=== PATIENT | female | born 1945 | race Caucasian/White ===

== ENCOUNTER 2017-12-13 11:19 | Emergency (ER) | payer MEDICARE, OTHER ==
--- OUTSIDE RECORDS SUMMARY | 2017-12-13 14:45 | XMS REPORT ---
:1945 External Reference #:[id number] Author Organization [facility] [employer] [facility] Address [address] [place] [address] Phone [phone] Care Team Providers Name Role Phone Stacia Redding MD Primary Care Physician Unavailable Payers Type Date Identification Numbers Payment Provider Subscriber Medicare Primary Effective: Policy Number: Medicare Fabien Clement 2013 [id number] PayID: [id number] [address] [place] [address] Commercial Policy Number: [id number] Lifetime Benefit Solution Fabien Clement PayID: [id number] [address] [place] [address] Problems Date Description Provider Status Onset: 05/14/2012 Cough Stacia Redding MD Active Onset: 05/14/2012 Benign essential hypertension Stacia Redding MD Active Onset: 05/14/2012 Gastroesophageal reflux disease Stacia Redding MD Active Onset: 05/14/2012 Depressive disorder Stacia Redding MD Active Onset: 10/22/2012 Acute upper respiratory infection Stacia Redding MD Active Onset: 11/07/2012 Backache Stacia Redding MD Active Family History Date Family Member(s) Problem(s) Comments Father due to Prostate Cancer () Mother due to Diabetes () Mother due to Pulmonary Embolus () Social History Type Date Description Comments ETOH Use Denies alcohol use Smoking Patient has never smoked Allergies, Adverse Reactions, Alerts Date Description Reaction Status Severity Comments 05/14/2012 Tramadol active 05/14/2012 Meloxicam active Medications Medication Date Status Form Strength Qnty SIG Indications Ordering Provider Sertraline HCL 06/10 Active Tablets 50mg 90tab 1 by mouth s every day Ring, Omeprazole 11/11 Active Capsules 20mg 90cap [address] seals every day Ring, Zostavax 09/21 Active Solution [id number]/ 1unit injection as Rec 0.65ML s ordered Ring, Clobetasol 10/22 Active Cream 0.05% 60gm small amount Elyn Propionate to affected Ring, area tid prn Zestril 05/14 Active Tablets 5mg 90tab 1 by mouth s every day Ring, Multivitamins 05/14 Active Tablets 100ta 1 po qd bs Ring, Ibuprofen 05/14 Active Tablets 800mg 60tab 1 po q8 hours s prn with food Ring, Actonel Active Tablets 35mg 12tab 1 by mouth El / s weekly Ring, Calcium 500 +D Active Tablets 500-400mg 2 by mouth Unknown /0000 -Unit twice a day Fiber Active Tablets 625mg 1 by mouth Unknown /0000 three times a day Hair Skin And Active Tablets Unknown Nails Formula /0000 Chaparro-Polycin HC 07/05 Hx Ointment 1% 5ml apply to Right eye Ring, - three times a Azithromycin 04/17 Hx Tablets 250mg 6tabs 2 by mouth J20.9 Sarkis F. /2017 today, 1 by MD Iveth - mouth day 2 07/05 thru Robitussin 04/17 Hx Capsules 10-200mg 20cap 1 by mouth J20.9 Sarkis F. Cough+Chest /2016 s twice a day MD Iveth Congestion DM - as needed 07/05 Amoxicillin 01/18 Hx Tablets 875mg 20tab tab 1 by s mouth twice a Ring, - day 03/29 Flagyl 01/21 Hx Tablets 500mg 30tab 1 po tid s Ring, - 02/05 Clarithromycin 10/22 Hx Tablets 500mg 20tab 1 po bid with s food Ring, - 11/07 Nystatin/Triamci 10/22 Hx Cream [id number]. 60gm apply to Elyn none /2012 1Unit/GM- affected area MD Miladis - % bid prn 09/15 Work Note 10/22 Hx may not return to MD Miladis - work till 11/0710/28/12 no restrictions TENS Unit 10/22 Hx 1unit as directed s dx. Pain MD Miladis - 07/15 Sertraline HCL 06/05 Hx Tablets 25mg 180ta 2 by mouth bs every day MD Miladis - 06/10 Omeprazole 05/14 Hx Capsules 20mg 90cap [address] bozena Redding MD - 02/05 Calcium 500+D 05/14 Hx Tablets 500-400mg as directed Stacia -Unit MD Miladis - 09/15 Claritin 05/14 Hx Tablets 10mg 15tab 1 po q day s prn MD Miladis - 11/07 Metaxalone 00 Hx Tablets 800mg Unknown /0000 - 07/05 Skelaxin 0000 Hx Tablets 800mg 1 by mouth Unknown /0000 twice a day - 06/10 Immunizations CPT Code Status Date Vaccine Reaction Lot # [id number] Given 08/14/2017 Influenza Virus (Afluria) Split Virus 3 Years Of Age And Older Q2035 Given 08/07/2017 Influenza Virus (Afluria) Split Virus 3 Years Of Age And Older Q2035 Given 08/07/2017 Influenza Virus (Afluria) [id number] Split Virus 3 Years Of Age And Older Q2037 Given 07/12/2016 Influenza Vaccine [id number] (Fluvirin) 3 Years Of Age Or Older [id number] Given 09/15/2015 Pneumococcal Conjugate [id number] Vaccine 13 Valent For Intramuscular Use Q2035 Given 07/22/2015 Influenza Virus (Afluria) Split Virus 3 Years Of Age And Older Q2035 Given 07/22/2015 Influenza Virus (Afluria) [id number] Split Virus 3 Years Of Age And Older [id number] Given 07/04/2015 Tetanus,Diphtheria,Adut/Ad ol Pertussis Q2037 Given 08/06/2014 Influenza Vaccine (Fluvirin) 3 Years Of Age Or Older Q2037 Given 08/06/2014 Influenza Vaccine (Fluvirin) 3 Years Of Age Or Older [id number] Given 08/12/2013 Influenza Virus Vaccine Done through [employer] [id number] (History Only) Vital Signs Date Vital Result Comment 12/05/2017 BP Systolic 126 mmHg BP Diastolic 70 mmHg Height 66.50 inches 5'6.50" Weight 205.00 lb BMI (Body Mass Index) 32.6 kg/m2 08/14/2017 BP Systolic 128 mmHg BP Diastolic 70 mmHg Height 66.50 inches 5'6.50" Weight 208.00 lb BMI (Body Mass Index) 33.1 kg/m2 07/05/2017 BP Systolic 122 mmHg BP Diastolic 66 mmHg Height 66.50 inches 5'6.50" Weight 206.00 lb BMI (Body Mass Index) 32.7 kg/m2 04/17/2017 BP Systolic 110 mmHg BP Diastolic 68 mmHg Body Temperature 974.0 F Height 66 inches 5'6" Weight 204.00 lb BMI (Body Mass Index) 32.9 kg/m2 04/04/2017 BP Systolic 132 mmHg BP Diastolic 70 mmHg Height 66 inches 5'6" Weight 212.00 lb BMI (Body Mass Index) 34.2 kg/m2 10/18/2016 BP Systolic 130 mmHg BP Diastolic 70 mmHg Height 66 inches 5'6" Weight 209.00 lb BMI (Body Mass Index) 33.7 kg/m2 07/12/2016 BP Systolic 142 mmHg BP Diastolic 72 mmHg Height 66 inches 5'6" Weight 210.00 lb BMI (Body Mass Index) 33.9 kg/m2 03/29/2016 BP Systolic 132 mmHg BP Diastolic 68 mmHg Height 66 inches 5'6" Weight 206.00 lb BMI (Body Mass Index) 33.2 kg/m2 12/21/2015 BP Systolic 138 mmHg BP Diastolic 70 mmHg Height 66 inches 5'6" Weight 201.00 lb BMI (Body Mass Index) 32.4 kg/m2 09/15/2015 BP Systolic 138 mmHg BP Diastolic 70 mmHg Height 66 inches 5'6" Weight 202.00 lb BMI (Body Mass Index) 32.6 kg/m2 06/10/2015 BP Systolic 120 mmHg BP Diastolic 76 mmHg Height 66 inches 5'6" Weight 203.00 lb BMI (Body Mass Index) 32.8 kg/m2 03/05/2015 BP Systolic 130 mmHg BP Diastolic 80 mmHg Height 66 inches 5'6" Weight 203.00 lb BMI (Body Mass Index) 32.8 kg/m2 11/26/2014 BP Systolic 152 mmHg BP Diastolic 70 mmHg Height 68 inches 5'8" Weight 203.00 lb BMI (Body Mass Index) 30.9 kg/m2 08/18/2014 BP Systolic 126 mmHg BP Diastolic 80 mmHg Height 68 inches 5'8" Weight 206.00 lb BMI (Body Mass Index) 31.3 kg/m2 04/28/2014 BP Systolic 140 mmHg BP Diastolic 80 mmHg Height 67 inches 5'7" Weight 208.00 lb BMI (Body Mass Index) 32.6 kg/m2 02/05/2014 BP Systolic 130 mmHg BP Diastolic 78 mmHg 02/05/2014 Weight 205.00 lb 01/21/2014 BP Systolic 122 mmHg BP Diastolic 80 mmHg 10/31/2013 BP Systolic 130 mmHg BP Diastolic 74 mmHg Height 66 inches 5'6" Weight 211.00 lb BMI (Body Mass Index) 34.1 kg/m2 07/15/2013 BP Systolic 130 mmHg BP Diastolic 70 mmHg Height 66 inches 5'6" Weight 214.00 lb BMI (Body Mass Index) 34.5 kg/m2 04/04/2013 BP Systolic 146 mmHg BP Diastolic 70 mmHg Height 66 inches 5'6" Weight 212.00 lb BMI (Body Mass Index) 34.2 kg/m2 11/07/2012 BP Systolic 110 mmHg BP Diastolic 62 mmHg Height 66 inches 5'6" Weight 209.00 lb BMI (Body Mass Index) 33.7 kg/m2 10/22/2012 BP Systolic 136 mmHg BP Diastolic 74 mmHg Body Temperature 99.6 F 06/05/2012 BP Systolic 142 mmHg BP Diastolic 80 mmHg Height 66 inches 5'6" Weight 214.00 lb BMI (Body Mass Index) 34.5 kg/m2 05/14/2012 BP Systolic 110 mmHg BP Diastolic 60 mmHg Height 66 inches 5'6" Weight 212.00 lb BMI (Body Mass Index) 34.2 kg/m2 Results Test Date Test Result H/L Range Note CBS W/Automated Diff 11/22/2017 White Blood Count 6.4 K/uL 3.1-10.7 1 Red Blood Count 4.32 M/uL 3.90-5.40 1 Hemoglobin 13.0 gm/dL 11.6-15.8 1 Hematocrit 39.1 % 36.0-46.1 1 Mean Cell Volume 90.5 fl 80.9-99.0 1 Mean Corpuscular HGB 30.1 pg 25.9-32.7 1 Mean Corpuscular HGB Conc 33.2 g/dL 30.8-34.3 1 Platelet Count 286 K/uL 155-360 1 Red Cell Distri Width SD 40.9 fl 3-47 1 Red Cell Distri Width %CV 12.7 % 11.7-14.4 1 Mean Platelet Volume 9.8 fL 8.9-12.4 1 Neut% 60.3 % 40.4-72.8 1 Lymph % 30.6 % 20.0-42.0 1 [place] % 7.2 % 4.3-13.2 1 Eo% 1.4 % 0.0-6.6 1 Bas% 0.5 % 0.0-1.1 1 Neut# 3.88 K/uL 1.8-7.0 1 Lymph # 1.97 K/uL 1.0-4.0 1 [place] # 0.46 K/uL 0.3-0.9 1 Eos # 0.09 K/uL 0.0-0.5 1 Baso # 0.03 K/uL 0.0-0.1 1 Comprehensive Metabolic Panel 11/22/2017 Glucose 89 mg/dL 74-106 1 BUN 19 mg/dL High 7-18 1 Creatinine 0.8 mg/dL 0.6-1.3 1 Glom Filtration Rate, Estimate >60 mL/min >60 1 If >60 mL/min >60 1, 2 BUN/Creat 23.7 ratio 1 Sodium 140 mmol/L 136-145 1 Potassium 3.9 mmol/L 3.5-5.1 1 Chloride 107 mmol/L 98-107 1 Carbon Dioxide 26 mmol/L 21-32 1 Anion Gap 7 mEq/L Low 8-16 1 Calcium 9.1 mg/dL 8.5-10.1 1 Total Protein 7.6 g/dL 6.4-8.2 1 Albumin 3.7 g/dL 3.4-5.0 1 Globulin 3.9 g/dL 1.9-4.3 1 Alb/Glob 0.9 ratio 1 Bilirubin,Total 0.4 mg/dL 0.2-1.0 1 Sgot/Ast 20 U/L 15-37 1 SGPT/Alt 27 U/L 12-78 1 Alkaline Phosphatase 122 U/L High 45-117 1 Hemoglobin A1c 08/07/2017 Glycohemoglobin (A1c) 5.5 % 4.2-6.3 3, 4 eAG 111 mg/dL 3 Hepatic Function Panel 08/07/2017 Total Protein 7.5 g/dL 6.4-8.2 3 Albumin 3.5 g/dL 3.4-5.0 3 Globulin 4.0 g/dL 1.9-4.3 3 Alb/Glob 0.9 ratio 3 Bilirubin,Total 0.4 mg/dL 0.2-1.0 3 Bilirubin,Direct 0.1 mg/dL 0.0-0.2 3 Bilirubin,Indirect 0.3 mg/dL 0.0-0.9 3 Sgot/Ast 16 U/L 15-37 3 SGPT/Alt 21 U/L 12-78 3 Alkaline Phosphatase 120 U/L High 45-117 3 General Health Panel 08/07/2017 Thyroid Stim Hormone 3.01 uIU/mL 0.30- 4.20 3 Free T4 0.89 ng/dL 0.76-1.46 3 CMP W/O Egfr 08/07/2017 Glucose 89 mg/dL 74-106 3 BUN 17 mg/dL 7-18 3 Creatinine 0.8 mg/dL 0.6-1.3 3 Glom Filtration Rate, Estimate >60 mL/min >60 3 If >60 mL/min >60 3, 5 BUN/Creat 21.2 ratio 3 Sodium 141 mmol/L 136-145 3 Potassium 4.0 mmol/L 3.5-5.1 3 Chloride 108 mmol/L High 98-107 3 Carbon Dioxide 29 mmol/L 21-32 3 Anion Gap 4 mEq/L Low 8-16 3 Calcium 8.7 mg/dL 8.5-10.1 3 Laboratory test finding 08/07/2017 Cholesterol 139 mg/dL <200 3, 6 CBC W/ Diff & PLT 08/07/2017 White Blood Count 5.6 K/uL 3.1-10.7 3 Red Blood Count 4.19 M/uL 3.90-5.40 3 Hemoglobin 12.8 gm/dL 11.6-15.8 3 Hematocrit 38.4 % 36.0-46.1 3 Mean Cell Volume 91.6 fl 80.9-99.0 3 Mean Corpuscular HGB 30.5 pg 25.9-32.7 3 Mean Corpuscular HGB Conc 33.3 g/dL 30.8-34.3 3 Platelet Count 264 K/uL 150-400 3 Red Cell Distri Width SD 42.4 fl 3-47 3 Red Cell Distri Width %CV 12.9 % 11.7-14.4 3 Mean Platelet Volume 9.1 fL 8.9-12.4 3 Neut% 56.1 % 40.4-72.8 3 Lymph % 34.2 % 20.0-42.0 3 [place] % 7.0 % 4.3-13.2 3 Eo% 2.3 % 0.0-6.6 3 Bas% 0.4 % 0.0-1.1 3 Neut# 3.13 K/uL 1.8-7.0 3 Lymph # 1.91 K/uL 1.0-4.0 3 [place] # 0.39 K/uL 0.3-0.9 3 Eos # 0.13 K/uL 0.0-0.5 3 Baso # 0.02 K/uL 0.0-0.1 3 CBC W/ Diff & PLT 06/27/2017 White Blood Count 5.8 K/uL 3.1-10.7 7 Red Blood Count 4.29 M/uL 3.90-5.40 7 Hemoglobin 13.0 gm/dL 11.6-15.8 7 Hematocrit 39.1 % 36.0-46.1 7 Mean Cell Volume 91.1 fl 80.9-99.0 7 Mean Corpuscular HGB 30.3 pg 25.9-32.7 7 Mean Corpuscular HGB Conc 33.2 g/dL 30.8-34.3 7 Platelet Count 269 K/uL 150-400 7 Red Cell Distri Width SD 41.1 fl 3-47 7 Red Cell Distri Width %CV 12.7 % 11.7-14.4 7 Mean Platelet Volume 9.4 fL 8.9-12.4 7 Neut% 53.7 % 40.4-72.8 7 Lymph % 37.5 % 20.0-42.0 7 [place] % 6.8 % 4.3-13.2 7 Eo% 1.5 % 0.0-6.6 7 Bas% 0.5 % 0.0-1.1 7 Neut# 3.13 K/uL 1.8-7.0 7 Lymph # 2.19 K/uL 1.0-4.0 7 [place] # 0.40 K/uL 0.3-0.9 7 Eos # 0.09 K/uL 0.0-0.5 7 Baso # 0.03 K/uL 0.0-0.1 7 Basic Metabolic Panel 06/27/2017 Glucose 93 mg/dL 74-106 7 BUN 19 mg/dL High 7-18 7 Creatinine 0.8 mg/dL 0.6-1.3 7 Glom Filtration Rate, Estimate >60 mL/min >60 7 If >60 mL/min >60 7, 8 BUN/Creat 23.7 ratio 7 Sodium 143 mmol/L 136-145 7 Potassium 3.9 mmol/L 3.5-5.1 7 Chloride 110 mmol/L High 98-107 7 Carbon Dioxide 28 mmol/L 21-32 7 Anion Gap 5 mEq/L Low 8-16 7 Calcium 8.9 mg/dL 8.5-10.1 7 CBC W/ Diff & PLT 01/09/2017 White Blood Count 5.5 K/uL 3.1-10.7 9 Red Blood Count 4.44 M/uL 3.90-5.40 9 Hemoglobin 13.5 gm/dL 11.6-15.8 9 Hematocrit 40.4 % 36.0-46.1 9 Mean Cell Volume 91.0 fl 80.9-99.0 9 Mean Corpuscular HGB 30.4 pg 25.9-32.7 9 Mean Corpuscular HGB Conc 33.4 g/dL 30.8-34.3 9 Platelet Count 293 K/uL 150-400 9 Red Cell Distri Width SD 41.6 fl 3-47 9 Red Cell Distri Width %CV 12.7 % 11.7-14.4 9 Mean Platelet Volume 9.2 fL 8.9-12.4 9 Neut% 51.4 % 40.4-72.8 9 Lymph % 38.3 % 20.0-42.0 9 [place] % 7.1 % 4.3-13.2 9 Eo% 2.7 % 0.0-6.6 9 Bas% 0.5 % 0.0-1.1 9 Neut# 2.80 K/uL 1.8-7.0 9 Lymph # 2.09 K/uL 1.0-4.0 9 [place] # 0.39 K/uL 0.3-0.9 9 Eos # 0.15 K/uL 0.0-0.5 9 Baso # 0.03 K/uL 0.0-0.1 9 Basic Metabolic Panel 01/09/2017 Glucose 96 mg/dL 74-106 9 BUN 14 mg/dL 7-18 9 Creatinine 0.8 mg/dL 0.6-1.3 9 Glom Filtration Rate, Estimate >60 mL/min >60 9 If >60 mL/min >60 9, 10 BUN/Creat 17.5 ratio 9 Sodium 143 mmol/L 136-145 9 Potassium 4.0 mmol/L 3.5-5.1 9 Chloride 106 mmol/L 98-107 9 Carbon Dioxide 29 mmol/L 21-32 9 Anion Gap 8 mEq/L 8-16 9 Calcium 8.9 mg/dL 8.5-10.1 9 General Health Panel 10/10/2016 Thyroid Stim Hormone 2.34 uIU/mL 0.30- 4.20 11 Free T4 0.94 ng/dL 0.76-1.46 11 Laboratory test finding 10/10/2016 Bilirubin,Direct 0.1 mg/dL 0.0-0.2 11 CMP W/O Egfr 10/10/2016 Glucose 92 mg/dL 74-106 11 BUN 20 mg/dL High 7-18 11 Creatinine 0.8 mg/dL 0.6-1.3 11 Glom Filtration Rate, Estimate >60 mL/min >60 11 If >60 mL/min >60 11, 12 BUN/Creat 25.0 ratio 11 Sodium 142 mmol/L 136-145 11 Potassium 3.9 mmol/L 3.5-5.1 11 Chloride 110 mmol/L High 98-107 11 Carbon Dioxide 25 mmol/L 21-32 11 Anion Gap 7 mEq/L Low 8-16 11 Calcium 8.7 mg/dL 8.5-10.1 11 Total Protein 7.6 g/dL 6.4-8.2 11 Albumin 3.6 g/dL 3.4-5.0 11 Globulin 4.0 g/dL 1.9-4.3 11 Alb/Glob 0.9 ratio 11 Bilirubin,Total 0.3 mg/dL 0.2-1.0 11 Sgot/Ast 22 U/L 15-37 11 SGPT/Alt 24 U/L 12-78 11 Alkaline Phosphatase 122 U/L High 45-117 11 CBC W/ Diff & PLT 10/10/2016 White Blood Count 6.5 K/uL 3.1-10.7 11 Red Blood Count 4.35 M/uL 3.90-5.40 11 Hemoglobin 13.1 gm/dL 11.6-15.8 11 Hematocrit 39.2 % 36.0-46.1 11 Mean Cell Volume 90.1 fl 80.9-99.0 11 Mean Corpuscular HGB 30.1 pg 25.9-32.7 11 Mean Corpuscular HGB Conc 33.4 g/dL 30.8-34.3 11 Platelet Count 265 K/uL 155-360 11 Red Cell Distri Width SD 41.0 fl 3-47 11 Red Cell Distri Width %CV 12.8 % 11.7-14.4 11 Mean Platelet Volume 9.0 fL 8.9-12.4 11 Neut% 55.3 % 40.4-72.8 11 Lymph % 35.7 % 17.0-46.1 11 [place] % 6.7 % 4.3-13.2 11 Eo% 1.7 % 0.0-6.6 11 Bas% 0.6 % 0.0-1.1 11 Neut# 3.57 K/uL 1.8-7.0 11 Lymph # 2.30 K/uL 1.8-7.0 11 [place] # 0.43 K/uL 0.3-0.9 11 Eos # 0.11 K/uL 0.0-0.5 11 Baso # 0.04 K/uL 0.0-0.1 11 Lipid Panel 10/10/2016 Cholesterol 143 mg/dL <200 11, 13 Triglycerides 114 mg/dL <150 11, 14 HDL Cholesterol 56 mg/dL >40 11, 15 LDL-Cholesterol 64 mg/dL < 100 11, 16 Basic Metabolic Panel 06/26/2016 Glucose 97 mg/dL 74-106 BUN 14 mg/dL 7-18 Creatinine 0.9 mg/dL 0.6-1.3 Glom Filtration Rate, Estimate >60 mL/min >60 If >60 mL/min >60 17 BUN/Creat 15.5 ratio Sodium 141 mmol/L 136-145 Potassium 3.9 mmol/L 3.5-5.1 Chloride 107 mmol/L 98-107 Carbon Dioxide 27 mmol/L 21-32 Anion Gap 7 mEq/L Low 8-16 Calcium 9.0 mg/dL 8.5-10.1 Basic Metabolic Panel 03/21/2016 Glucose 90 mg/dL 74-106 BUN 16 mg/dL 7-18 Creatinine 0.8 mg/dL 0.6-1.3 Glom Filtration Rate, Estimate >60 mL/min >60 If >60 mL/min >60 18 BUN/Creat 20.0 ratio Sodium 139 mmol/L 136-145 Potassium 3.7 mmol/L 3.5-5.1 Chloride 105 mmol/L 98-107 Carbon Dioxide 28 mmol/L 21-32 Anion Gap 6 mEq/L Low 8-16 Calcium 8.9 mg/dL 8.5-10.1 Basic Metabolic Panel 12/14/2015 Glucose 103 mg/dL 74-106 BUN 18 mg/dL 7-18 Creatinine 0.8 mg/dL 0.6-1.3 Glom Filtration Rate, Estimate >60 mL/min >60 If >60 mL/min >60 19 BUN/Creat 22.5 ratio Sodium 141 mmol/L 136-145 Potassium 4.1 mmol/L 3.5-5.1 Chloride 107 mmol/L 98-107 Carbon Dioxide 28 mmol/L 21-32 Anion Gap 6 mEq/L Low 8-16 Calcium 8.9 mg/dL 8.5-10.1 General Health Panel 09/08/2015 Thyroid Stim Hormone 2.69 uIU/mL 0.36- 3.74 Comprehensive Metabolic 09/08/2015 Glucose 95 mg/dL 74-106 Panel BUN 15 mg/dL 7-18 Creatinine 0.8 mg/dL 0.6-1.3 Glom Filtration Rate, Estimate >60 mL/min >60 If >60 mL/min >60 20 BUN/Creat 18.7 ratio Sodium 140 mmol/L 136-145 Potassium 3.9 mmol/L 3.5-5.1 Chloride 107 mmol/L 98-107 Carbon Dioxide 28 mmol/L 21-32 Anion Gap 5 mEq/L Low 8-16 Calcium 9.0 mg/dL 8.5-10.1 Total Protein 7.9 g/dL 6.4-8.2 Albumin 3.8 g/dL 3.4-5.0 Globulin 4.1 g/dL 1.9-4.3 Alb/Glob 0.9 ratio Bilirubin,Total 0.5 mg/dL 0.2-1.0 Sgot/Ast 20 U/L 15-37 SGPT/Alt 26 U/L 12-78 Alkaline Phosphatase 143 U/L High 45-117 Laboratory test finding 09/08/2015 Thyroxine (T4) 10.0 g/dL 4.7-13.5 LDL Cholesterol Profile 09/08/2015 Cholesterol 151 mg/dL <200 21 Triglycerides 77 mg/dL <150 22 HDL Cholesterol 57 mg/dL >40 23 LDL-Cholesterol 79 mg/dL < 100 24 Liver Function Tests 09/08/2015 Total Protein 7.9 g/dL 6.4-8.2 Albumin 3.8 g/dL 3.4-5.0 Globulin 4.1 g/dL 1.9-4.3 Alb/Glob 0.9 ratio Bilirubin,Total 0.5 mg/dL 0.2-1.0 Bilirubin,Direct < 0.1 mg/dL 0.0-0.2 Bilirubin,Indirect 0.4 mg/dL 0.0-0.9 Sgot/Ast 20 U/L 15-37 SGPT/Alt 26 U/L 12-78 Alkaline Phosphatase 143 U/L High 45-117 CBS W/Automated Diff 09/08/2015 White Blood Count 5.0 K/uL 3.1-10.7 Red Blood Count 4.25 M/uL 3.90-5.40 Hemoglobin 13.1 gm/dL 11.6-15.8 Hematocrit 39.1 % 36.0-46.1 Mean Cell Volume 92.0 fl 80.9-99.0 Mean Corpuscular HGB 30.8 pg 25.9-32.7 Mean Corpuscular HGB Conc 33.5 g/dL 30.8-34.3 Platelet Count 293 K/uL 155-360 Red Cell Distri Width SD 41.4 fl 3-47 Red Cell Distri Width %CV 12.7 % 11.7-14.4 Mean Platelet Volume 9.6 fL 8.9-12.4 Neut% 61.5 % 40.4-72.8 Lymph % 29.2 % 17.0-46.1 [place] % 7.3 % 4.3-13.2 Eo% 1.6 % 0.0-6.6 Bas% 0.4 % 0.0-1.1 Neut# 3.10 K/uL 1.0-7.0 Lymph # 1.47 K/uL Low 1.8-7.0 [place] # 0.37 K/uL 0.3-0.9 Eos # 0.08 K/uL 0.0-0.5 Baso # 0.02 K/uL 0.0-0.1 Basic Metabolic Panel 06/01/2015 Glucose 94 mg/dL 74-106 BUN 14 mg/dL 7-18 Creatinine 0.8 mg/dL 0.6-1.3 Glom Filtration Rate, Estimate >60 mL/min >60 If >60 mL/min >60 25 BUN/Creat 17.5 ratio Sodium 140 mmol/L 136-145 Potassium 3.8 mmol/L 3.5-5.1 Chloride 108 mmol/L High 98-107 Carbon Dioxide 28 mmol/L 21-32 Anion Gap 4 mEq/L Low 8-16 Calcium 8.9 mg/dL 8.5-10.1 Basic Metabolic Panel 05/14/2015 Glucose 136 mg/dL High 74-106 BUN 19 mg/dL High 7-18 Creatinine 0.9 mg/dL 0.6-1.3 Glom Filtration Rate, Estimate >60 mL/min >60 If >60 mL/min >60 26 BUN/Creat 21.1 ratio Sodium 140 mmol/L 136-145 Potassium 3.6 mmol/L 3.5-5.1 Chloride 108 mmol/L High 98-107 Carbon Dioxide 27 mmol/L 21-32 Anion Gap 5 mEq/L Low 8-16 Calcium 8.9 mg/dL 8.5-10.1 CBC W/Automated Diff 05/14/2015 White Blood Count 7.2 K/uL 3.1-10.7 Red Blood Count 4.21 M/uL 3.90-5.40 Hemoglobin 12.7 gm/dL 11.6-15.8 Hematocrit 38.1 % 36.0-46.1 Mean Cell Volume 90.5 fl 80.9-99.0 Mean Corpuscular HGB 30.2 pg 25.9-32.7 Mean Corpuscular HGB Conc 33.3 g/dL 30.8-34.3 Platelet Count 235 K/uL 155-360 Red Cell Distri Width SD 40.0 fl 3-47 Red Cell Distri Width %CV 12.5 % 11.7-14.4 Mean Platelet Volume 9.2 fL 8.9-12.4 Neut% 64.2 % 40.4-72.8 Lymph % 27.3 % 17.0-46.1 [place] % 6.4 % 4.3-13.2 Eo% 1.8 % 0.0-6.6 Bas% 0.3 % 0.0-1.1 Neut# 4.63 K/uL 1.0-7.0 Lymph # 1.97 K/uL 1.8-7.0 [place] # 0.46 K/uL 0.3-0.9 Eos # 0.13 K/uL 0.0-0.5 Baso # 0.02 K/uL 0.0-0.1 Basic Metabolic Panel 02/26/2015 Glucose 97 mg/dL 74-106 BUN 12 mg/dL 7-18 Creatinine 0.8 mg/dL 0.6-1.3 Glom Filtration Rate, Estimate >60 mL/min >60 If >60 mL/min >60 27 BUN/Creat 15.0 ratio Sodium 141 mmol/L 136-145 Potassium 4.0 mmol/L 3.5-5.1 Chloride 108 mmol/L High 98-107 Carbon Dioxide 25 mmol/L 21-32 Anion Gap 8 mEq/L 8-16 Calcium 9.4 mg/dL 8.5-10.1 CBC W/ Diff & PLT 11/19/2014 White Blood Count 7.2 K/uL 3.1-10.7 Red Blood Count 4.39 M/uL 3.90-5.40 Hemoglobin 13.3 gm/dL 11.6-15.8 Hematocrit 40.2 % 36.0-46.1 Mean Cell Volume 91.6 fl 80.9-99.0 Mean Corpuscular HGB 30.3 pg 25.9-32.7 Mean Corpuscular HGB Conc 33.1 g/dL 30.8-34.3 Platelet Count 309 K/uL 155-360 Red Cell Distri Width SD 42.9 fl 3-47 Red Cell Distri Width %CV 13.0 % 11.7-14.4 Mean Platelet Volume 9.6 fL 8.9-12.4 Neut% 57.5 % 40.4-72.8 Lymph % 32.9 % 17.0-46.1 [place] % 6.9 % 4.3-13.2 Eo% 2.1 % 0.0-6.6 Bas% 0.6 % 0.0-1.1 Neut# 4.14 K/uL 1.0-7.0 Lymph # 2.37 K/uL 0.8-3.4 [place] # 0.50 K/uL 0.3-0.9 Eos # 0.15 K/uL 0.0-0.5 Baso # 0.04 K/uL 0.0-0.1 Basic Metabolic Panel 11/19/2014 Glucose 92 mg/dL 74-106 BUN 20 mg/dL High 7-18 Creatinine 0.9 mg/dL 0.6-1.3 Glom Filtration Rate, Estimate >60 mL/min >60 If >60 mL/min >60 28 BUN/Creat 22.2 ratio Sodium 141 mmol/L 136-145 Potassium 3.7 mmol/L 3.5-5.1 Chloride 108 mmol/L High 98-107 Carbon Dioxide 26 mmol/L 21-32 Anion Gap 11 mEq/L 8-16 Calcium 9.5 mg/dL 8.5-10.1 Clotest 11/02/2014 Clotest (SEE NOTE) 29 Surgical Pathology 11/02/2014 S RUN DATE: 11/03/ <SEE 30 NOTE> Comprehensive Metabolic Panel 08/06/2014 Glucose 95 mg/dL 74-106 BUN 21 mg/dL High 7-18 Creatinine 0.9 mg/dL 0.6-1.3 Glom Filtration Rate, Estimate >60 mL/min >60 If >60 mL/min >60 31 BUN/Creat 23.3 ratio Sodium 139 mmol/L 136-145 Potassium 4.0 mmol/L 3.5-5.1 Chloride 107 mmol/L 98-107 Carbon Dioxide 27 mmol/L 21-32 Anion Gap 9 mEq/L 8-16 Calcium 9.3 mg/dL 8.5-10.1 Total Protein 8.1 g/dL 6.4-8.2 Albumin 3.8 g/dL 3.4-5.0 Globulin 4.3 g/dL 1.9-4.3 Alb/Glob 0.9 ratio Bilirubin,Total 0.4 mg/dL 0.2-1.0 Sgot/Ast 22 U/L 15-37 SGPT/Alt 26 U/L 12-78 Alkaline Phosphatase 121 U/L High 45-117 LDL Cholesterol Profile 08/06/2014 Cholesterol 140 mg/dL 32 Triglycerides 94 mg/dL 33 HDL Cholesterol 55 mg/dL 34 LDL-Cholesterol 66 mg/dL 35 Laboratory test finding 08/06/2014 Thyroid Stim Hormone 3.81 uIU/mL High 0.36-3.74 Free T4 1.05 ng/dL 0.76-1.46 Liver Function Tests 08/06/2014 Total Protein 8.1 g/dL 6.4-8.2 Albumin 3.8 g/dL 3.4-5.0 Globulin 4.3 g/dL 1.9-4.3 Alb/Glob 0.9 ratio Bilirubin,Total 0.4 mg/dL 0.2-1.0 Bilirubin,Direct < 0.1 mg/dL 0.0-0.2 Bilirubin,Indirect 0.3 mg/dL 0.0-0.9 Sgot/Ast 22 U/L 15-37 SGPT/Alt 26 U/L 12-78 Alkaline Phosphatase 121 U/L High 45-117 Laboratory test finding 08/06/2014 CK 79 U/L 26-192 CBC W/ Diff & PLT 08/06/2014 White Blood Count 6.5 K/uL 3.1-10.7 Red Blood Count 4.53 M/uL 3.90-5.40 Hemoglobin 13.8 gm/dL 11.6-15.8 Hematocrit 41.4 % 36.0-46.1 Mean Cell Volume 91.4 fl 80.9-99.0 Mean Corpuscular HGB 30.5 pg 25.9-32.7 Mean Corpuscular HGB Conc 33.3 g/dL 30.8-34.3 Platelet Count 338 K/uL 155-360 Red Cell Distri Width SD 41.0 fl 3-47 Red Cell Distri Width %CV 12.6 % 11.7-14.4 Mean Platelet Volume 9.5 fL 8.9-12.4 Neut% 60.5 % 40.4-72.8 Lymph % 30.0 % 17.0-46.1 [place] % 6.9 % 4.3-13.2 Eo% 2.0 % 0.0-6.6 Bas% 0.6 % 0.0-1.1 Neut# 3.93 K/uL 1.0-7.0 Lymph # 1.95 K/uL 0.8-3.4 [place] # 0.45 K/uL 0.3-0.9 Eos # 0.13 K/uL 0.0-0.5 Baso # 0.04 K/uL 0.0-0.1 Laboratory test finding 08/06/2014 Vitamin D,25-Hydroxy 31.7 ng/mL 30.0- 100.0 36 Basic Metabolic Panel 04/21/2014 Glucose 93 mg/dL 76-115 BUN 15 mg/dL 5-23 Creatinine 0.7 mg/dL 0.5-1.4 Glom Filtration Rate, Estimate >60 mL/min >60 If >60 mL/min >60 37 BUN/Creat 21.4 ratio Sodium 140 mmol/L 136-145 Potassium 4.0 mmol/L 3.5-5.1 Chloride 109 mmol/L High 98-107 Carbon Dioxide 26 mEq/L 18-29 Anion Gap 9 mEq/L 8-16 Calcium 9.3 mg/dL 8.5-10.1 Ova + Parasite Comprehensive 01/22/2014 Parasite Concentrate Exam See Note 38 Permanent Trichrome Stain See Note 39 Giardia by Dfa See Note 40 Cryptosporidium by Dfa See Note 41 Laboratory test finding 01/22/2014 C. Difficile Toxin A/B See Note 42 Basic Metabolic Panel 01/21/2014 Glucose 101 mg/dL 76-115 BUN 16 mg/dL 5-23 Creatinine 0.9 mg/dL 0.5-1.4 Glom Filtration Rate, Estimate >60 mL/min >60 If >60 mL/min >60 43 BUN/Creat 17.7 ratio Sodium 141 mmol/L 136-145 Potassium 3.9 mmol/L 3.5-5.1 Chloride 108 mmol/L High 98-107 Carbon Dioxide 27 mEq/L 18-29 Anion Gap 10 mEq/L 8-16 Calcium 9.2 mg/dL 8.5-10.1 CBS W/Automated Diff 01/21/2014 White Blood Count 11.0 K/uL High 3.1-10.7 Red Blood Count 4.27 M/uL 3.90-5.40 Hemoglobin 13.0 gm/dL 11.6-15.8 Hematocrit 38.9 % 36.0-46.1 Mean Cell Volume 91.1 fl 80.9-99.0 Mean Corpuscular HGB 30.4 pg 25.9-32.7 Mean Corpuscular HGB Conc 33.4 g/dL 30.8-34.3 Platelet Count 295 K/uL 155-360 Red Cell Distri Width SD 40.7 fl 3-47 Red Cell Distri Width %CV 12.6 % 11.7-14.4 Mean Platelet Volume 9.4 fL 8.9-12.4 Neut% 70.8 % 40.4-72.8 Lymph % 21.5 % 17.0-46.1 [place] % 6.9 % 4.3-13.2 Eo% 0.6 % 0.0-6.6 Bas% 0.2 % 0.0-1.1 Neut# 7.76 K/uL High 1.0-7.0 Lymph # 2.36 K/uL 0.8-3.4 [place] # 0.76 K/uL 0.3-0.9 Eos # 0.07 K/uL 0.0-0.5 Baso # 0.02 K/uL 0.0-0.1 Laboratory test finding 01/21/2014 Lipase 108 U/L 28-380 Basic Metabolic Panel 10/25/2013 Glucose 98 mg/dL 76-115 BUN 18 mg/dL 5-23 Creatinine 0.6 mg/dL 0.5-1.4 Glom Filtration Rate, Estimate >60 mL/min >60 If >60 mL/min >60 44 BUN/Creat 30.0 ratio Sodium 139 mmol/L 136-145 Potassium 3.7 mmol/L 3.5-5.1 Chloride 106 mmol/L 98-107 Carbon Dioxide 27 mEq/L 18-29 Anion Gap 10 mEq/L 8-16 Calcium 9.3 mg/dL 8.5-10.1 Hemoglobin A1c 10/25/2013 Glycohemoglobin (A1c) 5.5 % 4.8-6.0 45 eAG 111 mg/dL TSH+Free T4 ([place] & 06/30/2013 Thyroid Stim Hormone 3.30 uIU/mL 0.49-4.[address] [facility]) Free T4 0.98 ng/dL 0.71-1.85 LDL Cholesterol Profile 06/30/2013 Cholesterol 138 mg/dL 120-200 Triglycerides 77 mg/dL 16-231 HDL Cholesterol 54 mg/dL 29-83 LDL-Cholesterol 69 mg/dL 62-185 CBS W/Automated Diff 06/30/2013 White Blood Count 5.4 K/uL 3.1-10.7 Red Blood Count 4.09 M/uL 3.90-5.40 Hemoglobin 12.4 gm/dL 11.6-15.8 Hematocrit 36.2 % 36.0-46.1 Mean Cell Volume 88.5 fl 80.9-99.0 Mean Corpuscular HGB 30.3 pg 25.9-32.7 Mean Corpuscular HGB Conc 34.3 g/dL 30.8-34.3 Platelet Count 267 K/uL 155-360 Red Cell Distri Width SD 40.2 fl 3-47 Red Cell Distri Width %CV 12.8 % 11.7-14.4 Mean Platelet Volume 9.3 fL 8.9-12.4 Neut% 54.7 % 40.4-72.8 Lymph % 33.1 % 17.0-46.1 [place] % 8.5 % 4.3-13.2 Eo% 3.1 % 0.0-6.6 Bas% 0.6 % 0.0-1.1 Neut# 2.98 K/uL 1.0-7.0 Lymph # 1.80 K/uL 0.8-3.4 [place] # 0.46 K/uL 0.3-0.9 Eos # 0.17 K/uL 0.0-0.5 Baso # 0.03 K/uL 0.0-0.1 Liver Function Tests 06/30/2013 Total Protein 7.6 g/dL 6.3-8.0 Albumin 3.7 g/dL 3.5-5.0 Globulin 3.9 g/dL 1.9-4.3 Alb/Glob 0.9 ratio Bilirubin,Total 0.5 mg/dL 0.2-1.2 Bilirubin,Direct 0.1 mg/dL 0.1-0.4 Bilirubin,Indirect 0.4 mg/dL 0.0-0.9 Sgot/Ast 21 U/L 16-40 SGPT/Alt 28 U/L Low 30-65 Alkaline Phosphatase 148 U/L High 50-136 Laboratory test finding 06/30/2013 CK 128 U/L 26-190 Vitamin D,25-Hydroxy 19.6 ng/mL Low 30.0-100.0 46 Comprehensive Metabolic Panel 06/30/2013 Glucose 88 mg/dL 76-115 BUN 14 mg/dL 5-23 Creatinine 0.8 mg/dL 0.5-1.4 Glom Filtration Rate, Estimate >60 mL/min >60 If >60 mL/min >60 47 BUN/Creat 17.5 ratio Sodium 143 mmol/L 136-145 Potassium 3.6 mmol/L 3.5-5.1 Chloride 109 mmol/L High 98-107 Carbon Dioxide 27 mEq/L 18-29 Anion Gap 11 mEq/L 8-16 Calcium 8.9 mg/dL 8.5-10.1 Total Protein 7.6 g/dL 6.3-8.0 Albumin 3.7 g/dL 3.5-5.0 Globulin 3.9 g/dL 1.9-4.3 Alb/Glob 0.9 ratio Bilirubin,Total 0.5 mg/dL 0.2-1.2 Sgot/Ast 21 U/L 16-40 SGPT/Alt 28 U/L Low 30-65 Alkaline Phosphatase 148 U/L High 50-136 Basic Metabolic Panel 03/18/2013 Glucose 92 mg/dL 76-115 BUN 16 mg/dL 5-23 Creatinine 0.9 mg/dL 0.5-1.4 Glom Filtration Rate, Estimate >60 mL/min >60 If >60 mL/min >60 48 BUN/Creat 17.7 ratio Sodium 143 mmol/L 136-145 Potassium 4.5 mmol/L 3.5-5.1 Chloride 107 mmol/L 98-107 Carbon Dioxide 28 mEq/L 18-29 Anion Gap 13 mEq/L 8-16 Calcium 9.0 mg/dL 8.5-10.1 Basic Metabolic Panel 10/31/2012 Glucose 95 mg/dL 76-115 BUN 14 mg/dL 5-23 Creatinine 0.7 mg/dL 0.5-1.4 Glom Filtration Rate, Estimate >60 mL/min >60 If >60 mL/min >60 49 BUN/Creat 20.0 ratio Sodium 142 mmol/L 136-145 Potassium 3.7 mmol/L 3.5-5.1 Chloride 108 mmol/L High 98-107 Carbon Dioxide 26 mEq/L 18-29 Anion Gap 12 mEq/L 8-16 Calcium 8.9 mg/dL 8.5-10.1 Glycohemoglobin A1c 10/31/2012 Glycohemoglobin (A1c) 6.0 % 4.8-6.0 50 eAG 126 mg/dL Comprehensive Metabolic Panel 05/14/2012 Glucose 92 mg/dL 76-115 BUN 16 mg/dL 5-23 Creatinine 0.9 mg/dL 0.5-1.4 Glom Filtration Rate, Estimate >60 mL/min >60 If >60 mL/min >60 51 BUN/Creat 17.7 ratio Sodium 141 mmol/L 136-145 Potassium 4.0 mmol/L 3.5-5.1 Chloride 107 mmol/L 98-107 Carbon Dioxide 27 mEq/L 18-29 Anion Gap 11 mEq/L 8-16 Calcium 9.4 mg/dL 8.5-10.1 Total Protein 8.0 g/dL 6.3-8.0 Albumin 3.7 g/dL 3.5-5.0 Globulin 4.3 g/dL 1.9-4.3 Alb/Glob 0.9 ratio Bilirubin,Total 0.3 mg/dL 0.2-1.2 Sgot/Ast 21 U/L 16-40 SGPT/Alt 28 U/L Low 30-65 Alkaline Phosphatase 98 U/L 50-136 LDL Cholesterol Profile 05/14/2012 Cholesterol 135 mg/dL 120-200 Triglycerides 111 mg/dL 16-231 HDL Cholesterol 50 mg/dL 29-83 LDL-Cholesterol 63 mg/dL 62-185 Laboratory test finding 05/14/2012 Thyroid Stim Hormone 2.93 uIU/mL 0.49- 4.67 CBS W/Automated Diff 05/14/2012 White Blood Count 8.8 K/uL 3.1-10.7 Red Blood Count 4.04 M/uL 3.90-5.40 Hemoglobin 12.2 gm/dL 11.6-15.8 Hematocrit 36.8 % 36.0-46.1 Mean Cell Volume 91.1 fl 80.9-99.0 Mean Corpuscular HGB 30.2 pg 25.9-32.7 Mean Corpuscular HGB Conc 33.2 g/dL 30.8-34.3 Platelet Count 316 K/uL 155-360 Red Cell Distri Width SD 41.4 fl 3-47 Red Cell Distri Width %CV 12.8 % 11.7-14.4 Mean Platelet Volume 9.3 fL 8.9-12.4 Neut% 57.1 % 40.4-72.8 Lymph % 32.0 % 17.0-46.1 [place] % 8.8 % 4.3-13.2 Eo% 1.6 % 0.0-6.6 Bas% 0.5 % 0.0-1.1 Neut# 5.00 K/uL 1.0-7.0 Lymph # 2.80 K/uL 0.8-3.4 [place] # 0.77 K/uL 0.3-0.9 Eos # 0.14 K/uL 0.0-0.5 Baso # 0.04 K/uL 0.0-0.1 1 I11.9, E78.2, Z00.0 2 Note: Persistent reduction for 3 months or more in an eGFR <60 mL/min/1.73 m2 defines CKD. Patients with eGFR values >/=60 mL/min/1.73 m2 may also have CKD if evidence of persistent proteinuria is present. The original MDRD equation for estimated GFR is not valid for patients less than 18 years of age. Additional information may be found at [email or web address]. 3 E66.9,E78.2,R73.01,I11.9,E03.9 4 Elevated levels of HbA1c suggest the need for more aggressive treatment of glycemia. The [place] [employer] recommends that a primary goal of therapy should be a HbA1c of <7% and that physicians should re-evaluate the treatment regimen in patients with HbA1c values consistently >8%. 5 Note: Persistent reduction for 3 months or more in an eGFR <60 mL/min/1.73 m2 defines CKD. Patients with eGFR values >/=60 mL/min/1.73 m2 may also have CKD if evidence of persistent proteinuria is present. The original MDRD equation for estimated GFR is not valid for patients less than 18 years of age. Additional information may be found at www.[email or web address]. 6 Reference Guidelines*: Desirable: ........... < 200 mg/dL Borderline High: ..... 200-239 mg/dL High: ................ >=240 mg/dL * The National Cholesterol Education Program (NCEP) 7 SCREENING,I11.9,J20.9,F32.9 8 Note: Persistent reduction for 3 months or more in an eGFR <60 mL/min/1.73 m2 defines CKD. Patients with eGFR values >/=60 mL/min/1.73 m2 may also have CKD if evidence of persistent proteinuria is present. The original MDRD equation for estimated GFR is not valid for patients less than 18 years of age. Additional information may be found at [email or web address]. 9 I11.9,E55.9 10 Note: Persistent reduction for 3 months or more in an eGFR <60 mL/min/1.73 m2 defines CKD. Patients with eGFR values >/=60 mL/min/1.73 m2 may also have CKD if evidence of persistent proteinuria is present. The original MDRD equation for estimated GFR is not valid for patients less than 18 years of age. Additional information may be found at [email or web address]. 11 I11.9 E66.9 E03.9 E78.2 12 Note: Persistent reduction for 3 months or more in an eGFR <60 mL/min/1.73 m2 defines CKD. Patients with eGFR values >/=60 mL/min/1.73 m2 may also have CKD if evidence of persistent proteinuria is present. The original MDRD equation for estimated GFR is not valid for patients less than 18 years of age. Additional information may be found at [email or web address]. 13 Reference Guidelines*: Desirable: ........... < 200 mg/dL Borderline High: ..... 200-239 mg/dL High: ................ >=240 mg/dL * The National Cholesterol Education Program (NCEP) 14 Reference Guidelines*: Normal: ............. < 150 mg/dL Borderline High: .... 150-199 mg/dL High: ............... 200-499 mg/dL Very High: .......... > 500 mg/dL * Source: National Cholesterol Education Program (NCEP) 15 Reference Guidelines*: Low HDL: ..... < 40 mg/dL Normal: ..... 40-60 mg/dL Desirable: ... > 60 mg/dL *The National Cholesterol Education Program(NCEP) 16 Reference Guidelines*: Optimal:........... <100 mg/dL Near Optimal....... 100-129 mg/dL Borderline High.... 130-159 mg/dL High............... 160-189 mg/dL Very High.......... >=190 mg/dL * Source: National Cholesterol Education Program (NCEP) 17 Note: Persistent reduction for 3 months or more in an eGFR <60 mL/min/1.73 m2 defines CKD. Patients with eGFR values >/=60 mL/min/1.73 m2 may also have CKD if evidence of persistent proteinuria is present. The original MDRD equation for estimated GFR is not valid for patients less than 18 years of age. Additional information may be found at [email or web address]. 18 Note: Persistent reduction for 3 months or more in an eGFR <60 mL/min/1.73 m2 defines CKD. Patients with eGFR values >/=60 mL/min/1.73 m2 may also have CKD if evidence of persistent proteinuria is present. The original MDRD equation for estimated GFR is not valid for patients less than 18 years of age. Additional information may be found at [email or web address]. 19 Note: Persistent reduction for 3 months or more in an eGFR <60 mL/min/1.73 m2 defines CKD. Patients with eGFR values >/=60 mL/min/1.73 m2 may also have CKD if evidence of persistent proteinuria is present. The original MDRD equation for estimated GFR is not valid for patients less than 18 years of age. Additional information may be found at [email or web address]. 20 Note: Persistent reduction for 3 months or more in an eGFR <60 mL/min/1.73 m2 defines CKD. Patients with eGFR values >/=60 mL/min/1.73 m2 may also have CKD if evidence of persistent proteinuria is present. The original MDRD equation for estimated GFR is not valid for patients less than 18 years of age. Additional information may be found at [email or web address]. 21 Reference Guidelines*: Desirable: ........... < 200 mg/dL Borderline High: ..... 200-239 mg/dL High: ................ >=240 mg/dL * The National Cholesterol Education Program (NCEP) 22 Reference Guidelines*: Normal: ............. < 150 mg/dL Borderline High: .... 150-199 mg/dL High: ............... 200-499 mg/dL Very High: .......... > 500 mg/dL * Source: National Cholesterol Education Program (NCEP) 23 Reference Guidelines*: Low HDL: ..... < 40 mg/dL Normal: ..... 40-60 mg/dL Desirable: ... > 60 mg/dL *The National Cholesterol Education Program(NCEP) 24 Reference Guidelines*: Optimal:........... <100 mg/dL Near Optimal....... 100-129 mg/dL Borderline High.... 130-159 mg/dL High............... 160-189 mg/dL Very High.......... >=190 mg/dL * Source: National Cholesterol Education Program (NCEP) 25 Note: Persistent reduction for 3 months or more in an eGFR <60 mL/min/1.73 m2 defines CKD. Patients with eGFR values >/=60 mL/min/1.73 m2 may also have CKD if evidence of persistent proteinuria is present. The original MDRD equation for estimated GFR is not valid for patients less than 18 years of age. Additional information may be found at [email or web address]. 26 Note: Persistent reduction for 3 months or more in an eGFR <60 mL/min/1.73 m2 defines CKD. Patients with eGFR values >/=60 mL/min/1.73 m2 may also have CKD if evidence of persistent proteinuria is present. The original MDRD equation for estimated GFR is not valid for patients less than 18 years of age. Additional information may be found at [email or web address]. 27 Note: Persistent reduction for 3 months or more in an eGFR <60 mL/min/1.73 m2 defines CKD. Patients with eGFR values >/=60 mL/min/1.73 m2 may also have CKD if evidence of persistent proteinuria is present. The original MDRD equation for estimated GFR is not valid for patients less than 18 years of age. Additional information may be found at [email or web address]. 28 Note: Persistent reduction for 3 months or more in an eGFR <60 mL/min/1.73 m2 defines CKD. Patients with eGFR values >/=60 mL/min/1.73 m2 may also have CKD if evidence of persistent proteinuria is present. The original MDRD equation for estimated GFR is not valid for patients less than 18 years of age. Additional information may be found at [email or web address]. 29 RUN DATE: 11/03/14 [facility] LAB LIVE PAGE 1 RUN TIME: [address] [place] [id number] Specimen Inquiry Name: FABIEN CLEMENT : [address]: Jesus Watts MD Acct: [id number] Unit: [id number] AGE: 69 Location: [facility] Re11/02/14 SEX: F Status: REG REF SPEC: [id number] LISA: 11/02/14-[address] [facility] [address]: Jesus Watts MD REQ: [id number] RECD: 11/02/14 STATUS: GAYLE SAAVEDRA DR: Satcia Redding MD _ SOURCE: GAS ANTRUM SPDESC: ORDERED: Clotest Procedure Result Verified Site Clotest Final 11/03/14- 0743 ML Clotest Negative END OF REPORT * ML=Testing performed at Main Lab DEPARTMENT OF PATHOLOGY, [facility] [place], [place] [address] Tobias Calix M.D. Director [facility] # [id number] 30 RUN DATE: 11/03/14 [facility] LAB LIVE PAGE 1 RUN TIME: 112 [facility] [place][note 2] [employer] [place], [place] [address] Specimen Inquiry Name: FABIEN CLEMENT : [address]: Jesus Watts MD Acct: [id number] Unit: [id number] AGE: 69 Location: [facility] Re11/02/14 SEX: F Status: REG REF SPEC: [id number] LISA: 11/02/14-[address] [facility] [address]: Jesus Watts MD REQ: [id number] RECD: 11/02/142549 STATUS: JOHN SAAVEDRA DR: Stacia Redding MD _ ORDERED: LEVEL IV FINAL DIAGNOSIS Colon, ileocecal nodule, biopsy: -- Tubular adenoma. -- No high grade dysplasia or malignancy. CLINICAL HISTORY Screening colnoscoyp with change in bowel habits POST-OPERATIVE DIAGNOSIS Esophagus normal 17-38 then ring and loose with hiatal hernia, no erosions; stomach - normal, CLOtest; duodenum normal. Screening colonoscopy. Hiatal hernia, gastroesophageal reflux disease; diverticulosis with stricture; right rectum nodule; positive family history. Recheck 5 years GROSS DESCRIPTION The specimen is received in formalin labeled, Ileocecal Nodule (Biopsy), and consists of a 0.5 x 0.4 x 0.1 cm jasso irregular soft tissue fragment, which is submitted entirely in one cassette. Signed (signature on file) Tobias Calix MD 1122 END OF REPORT * ML=Testing performed at Main Lab DEPARTMENT OF PATHOLOGY, [address] [place] [address] Tobias Calix M.D. Director [facility] # [id number] 31 Note: Persistent reduction for 3 months or more in an eGFR <60 mL/min/1.73 m2 defines CKD. Patients with eGFR values >/=60 mL/min/1.73 m2 may also have CKD if evidence of persistent proteinuria is present. The original MDRD equation for estimated GFR is not valid for patients less than 18 years of age. Additional information may be found at [email or web address]. 32 Reference Guidelines*: Desirable: ........... < 200 mg/dL Borderline High: ..... 200-239 mg/dL High: ................ >=240 mg/dL * The National Cholesterol Education Program (NCEP) 33 Reference Guidelines*: Normal: ............. < 150 mg/dL Borderline High: .... 150-199 mg/dL High: ............... 200-499 mg/dL Very High: .......... > 500 mg/dL * Source: National Cholesterol Education Program (NCEP) 34 Reference Guidelines*: Low HDL: ..... < 40 mg/dL Normal: ..... 40-60 mg/dL Desirable: ... > 60 mg/dL *The National Cholesterol Education Program(NCEP) 35 Reference Guidelines*: Optimal:........... <100 mg/dL Near Optimal....... 100-129 mg/dL Borderline High.... 130-159 mg/dL High............... 160-189 mg/dL Very High.......... >=190 mg/dL * Source: National Cholesterol Education Program (NCEP) 36 Vitamin D deficiency has been defined by the [employer] of [employer] and an Endocrine Society practice guideline as a level of serum 25-OH vitamin D less than 20 ng/mL (1,2). The Endocrine Society went on to further define vitamin D insufficiency as a level between 21 and 29 ng/mL (2). 1. IOM ([place] of Medicine). 2010. Dietary reference intakes for calcium and D. [place]: The National Academies Press. 2. Noa MF, Bladimir [place], Candy PORRAS, et al. Evaluation, treatment, and prevention of vitamin D deficiency: an Endocrine Society clinical practice guideline. JCEM. 2010; 96(7):1911-30. Performed at: RN - [facility] [address] [id number] [employer]icycle Messenger: Catalina Joiner MD, Phone: [phone] 37 Note: Persistent reduction for 3 months or more in an eGFR <60 mL/min/1.73 m2 defines CKD. Patients with eGFR values >/=60 mL/min/1.73 m2 may also have CKD if evidence of persistent proteinuria is present. The original MDRD equation for estimated GFR is not valid for patients less than 18 years of age. Additional information may be found at www.[email or web address]. 38 NO OVA AND PARASITES SEEN BY CONCENTRATE EXAM 39 NO OVA OR PARASITES SEEN ON PERMANENT TRICHROME STAIN 40 NEGATIVE for Giardia by DFA 41 NEGATIVE for Cryptosporidium by DFA Testing Performed by: Laboratory [place] [address] 42 NEGATIVE FOR C. DIFFICILE TOXIN A/B. CORRELATE RESULTS WITH CLINICAL CONDITION. 43 Note: Persistent reduction for 3 months or more in an eGFR <60 mL/min/1.73 m2 defines CKD. Patients with eGFR values >/=60 mL/min/1.73 m2 may also have CKD if evidence of persistent proteinuria is present. The original MDRD equation for estimated GFR is not valid for patients less than 18 years of age. Additional information may be found at [email or web address]. 44 Note: Persistent reduction for 3 months or more in an eGFR <60 mL/min/1.73 m2 defines CKD. Patients with eGFR values >/=60 mL/min/1.73 m2 may also have CKD if evidence of persistent proteinuria is present. The original MDRD equation for estimated GFR is not valid for patients less than 18 years of age. Additional information may be found at www.[email or web address]. 45 A1c value between 5.7% and 6.4% is considered at increased risk for diabetes. A1c value greater than 6.5 % is considered essentially diagnostic for Type II diabetes. Current guidelines recommend a treatment goal of <7% for diabetic patients. This method will measure glycosylated hemoglobin variants, HbS, HbG, HbH, HbWayne, HbC, HbE, etc. Other hemoglobin- opathies may give incorrect results with this test. 46 Vitamin D deficiency has been defined by the [employer] of [employer] and an Endocrine Society practice guideline as a level of serum 25-OH vitamin D less than 20 ng/mL (1,2). The Endocrine Society went on to further define vitamin D insufficiency as a level between 21 and 29 ng/mL (2). 1. IOM ([place] of Medicine). 2010. Dietary reference intakes for calcium and D. [place]: The National Academies Press. 2. Noa MF, Bladimir CHOWDHURY, Candy PORRAS, et al. Evaluation, treatment, and prevention of vitamin D deficiency: an Endocrine Society clinical practice guideline. JCEM. 2010; 96(7):1911-30. Performed at: RN - [facility] [address] [id number] [employer] Messenger: Catalina Joiner MD, Phone: [phone] 47 Note: Persistent reduction for 3 months or more in an eGFR <60 mL/min/1.73 m2 defines CKD. Patients with eGFR values >/=60 mL/min/1.73 m2 may also have CKD if evidence of persistent proteinuria is present. The original MDRD equation for estimated GFR is not valid for patients less than 18 years of age. Additional information may be found at www.[email or web address]. 48 Note: Persistent reduction for 3 months or more in an eGFR <60 mL/min/1.73 m2 defines CKD. Patients with eGFR values >/=60 mL/min/1.73 m2 may also have CKD if evidence of persistent proteinuria is present. The original MDRD equation for estimated GFR is not valid for patients less than 18 years of age. Additional information may be found at [email or web address]. 49 Note: Persistent reduction for 3 months or more in an eGFR <60 mL/min/1.73 m2 defines CKD. Patients with eGFR values >/=60 mL/min/1.73 m2 may also have CKD if evidence of persistent proteinuria is present. The original MDRD equation for estimated GFR is not valid for patients less than 18 years of age. Additional information may be found at www.[email or web address]. 50 A1c value between 5.7% and 6.4% is considered at increased risk for diabetes. A1c value greater than 6.5 % is considered essentially diagnostic for Type II diabetes. Current guidelines recommend a treatment goal of <7% for diabetic patients. This method will measure glycosylated hemoglobin variants, HbS, HbG, HbH, HbWayne, HbC, HbE, etc. Other hemoglobin- opathies may give incorrect results with this test. 51 Note: Persistent reduction for 3 months or more in an eGFR <60 mL/min/1.73 m2 defines CKD. Patients with eGFR values >/=60 mL/min/1.73 m2 may also have CKD if evidence of persistent proteinuria is present. The original MDRD equation for estimated GFR is not valid for patients less than 18 years of age. Additional information may be found at [email or web address]. Procedures Date CPT Code Description Status Comment 08/07/2017 23042 Spirometry Graphic Record/Max Completed Voluntary Vent 08/07/2017 86727 EKG-Tracing & Report Completed 07/09/2017 42916 Non-Invcorrotid/Comp /Bilat Study Completed 07/09/2017 91956 Echocardiography Completed 02/24/2016 94120 Dxa Bone Density Axial Skeleton Inc Completed Vertebral Fracture Assessment 02/24/2016 Bone Mineral Density Test Completed 09/02/2015 91573 Non-Invcorrotid/Comp /Bilat Study Completed 04/06/2015 Mammogram Completed 06/27/16,06/27/17 08/14/2014 00249 PVR-Atrerial Study Completed 08/06/2014 39348 Spirometry Graphic Record/Max Completed Voluntary Vent 03/26/2014 58252 Bone Density Completed 02/17/2014 64146 Non-Invcorrotid/Comp /Bilat Study Completed 06/30/2013 16119 EKG-Tracing & Report Completed 05/20/2012 59187 Spirometry Graphic Record/Max Completed Voluntary Vent Encounters Type Date Location Provider CPT E/M Dx Office Visit 08/14/2017 10:15a [place] [address] I34.0 I11.9 E66.9 E55.9 F32.9 K21.9 Z00.00 R00.2 Z23 Office Visit 07/05/2017 3:15p [place] [address] I11.9 E66.9 K21.9 F32.9 E55.9 R53.83 Office Visit 04/17/2017 1:40p [place] [address] J20.9 Office Visit 04/04/2017 8:00p [place] [address] I11.9 E66.9 K21.9 F32.9 Office Visit 07/12/2016 7:00p [place] [address] I11.9 E66.9 K21.9 F32.9 R00.2 I65.23 I34.0 Office Visit 03/29/2016 12:00p [place] [address] M85.819 I11.9 E66.9 K21.9 F32.9 M54.2 Office Visit 12/21/2015 3:00p [place] [address] I11.9 E66.9 F32.9 K21.9 M81.0 Office Visit 09/15/2015 3:00p [place] [address] I11.9 E66.9 F32.9 R00.2 Z00.00 K21.9 Z23 Office Visit 07/08/2015 1:15p [place] [address] 924.90 GENERAL Office Visit 06/10/2015 1:00p [place] [address] 268.9 402.10 278.00 311 424.0 272.4 785.10 GENERAL Office Visit 03/05/2015 2:30p [place] [address] 268.9 402.10 278.00 311 784.0 723.10 GENERAL Office Visit 11/26/2014 3:15p [place] [address] 562.11 569.89 268.9 402.10 GENERAL Office Visit 08/18/2014 3:30p [place] [address] 402.10 278.00 311 272.4 268.9 424.0 V16.0 V72.2 V72.0 V70.0 GENERAL Office Visit 04/28/2014 4:00p [place] [address] 402.10 278.00 311 272.4 433.10 268.9 424.0 GENERAL Office Visit 02/05/2014 10:30a [place] [address] 402.10 278.00 311 272.4 268.9 787.91 433.10 GENERAL Office Visit 01/21/2014 10:00a [place] [address] 787.91 GENERAL Office Visit 10/31/2013 1:00p [place] [address] 402.10 278.00 311 272.4 268.9 GENERAL Office Visit 07/15/2013 3:00p [place] [address] 402.10 278.00 724.50 311 V72.2 V70.0 GENERAL Office Visit 04/04/2013 12:30p [place] [address] 724.50 401.1 311 GENERAL Office Visit 11/25/2012 3:30p [place] [address] 465.9 GENERAL Office Visit 11/07/2012 3:30p [place] [address] 724.50 401.1 311 GENERAL Office Visit 10/22/2012 1:15p [place] [address] 465.9 462 GENERAL Office Visit 06/05/2012 3:30p [place] [address] 401.1 311 V72.0 V70.0 724.50 278.00 GENERAL Office Visit 05/14/2012 3:30p [place] [address] 786.2 401.1 530.81 311 GENERAL Plan of Care Future Appointment(s):03/22/2018 8:00 am - Nurse at Main [id number]/29/2018 4: 00 pm - Stacia Redding MD at Main Mwmssb1512/05/2017 - Stacia Redding MDE66.9 Obesity, unspecifiedComments:EDUCATION REGARDING OBESITY REVIEWED FOR 15 MINUTES DURING [id number] Major depressive disorder, single episode, unspecifiedComments: CONT ZOLOFT, SLOWLY TAPERINGSTABLE NO MED CHANGES NO ADVERSE EFFECTS NLELDC96.9 Gastro-esophageal reflux disease without esophagitisComments:CONT OMEPRAZOLEASYMPTOMATIC GI FU PRNI11.9 Hypertensive heart disease without heart failureComments:STABLECONT. ZESTRILRENAL FUNCTION NL MONITOR WITH LABS VUEUZRKN94.5 Hyperlipidemia, unspecifiedComments:MONITOR NO MEDSAllComments:UA DONERTO MAYLIPIDS,CARD1,CBC BEFORE VISIT
--- OUTSIDE RECORDS SUMMARY | 2017-12-13 14:47 | XMS REPORT ---
:1945 External Reference #:[id number] Author Organization [employer] Address [address] [place] [address] Phone [phone] Care Team Providers Name Role Phone Stacia Redding MD Primary Care Physician Unavailable Payers Type Date Identification Numbers Payment Provider Subscriber Medicare Primary Effective: Policy Number: Medicare Fabien Clement 2013 [id number] PayID: [id number] [address] [place] [address] Commercial Policy Number: [id number] Lifetime Benefit Solution Fabien Clement PayID: [id number] [address] [place] [address] Problems Date Description Provider Status Onset: 05/14/2012 [...] every day Ring, Zostavax 09/21 Active Solution 64045Ubg/ 1unit injection as Rec 0.65ML s ordered [...] Ring, - 11/07 Nystatin/Triamci 10/22 Hx Cream 268620-8. 60gm apply to Elyn none /2012 1Unit/GM- [...] Older Q2035 Given 08/07/2017 Influenza Virus (Afluria) [id number] Split Virus 3 Years Of Age And Older Q2037 Given 07/12/2016 Influenza Vaccine [id number] (Fluvirin) 3 Years Of Age Or Older [address]7638 Given 09/15/2015 Pneumococcal Conjugate G29671 Vaccine 13 Valent For Intramuscular Use Q2035 Given 07/22/2015 Influenza Virus (Afluria) Split Virus 3 Years Of Age And Older Q2035 Given 07/22/2015 Influenza Virus (Afluria) J29976 Split Virus 3 Years Of Age And Older 42245 Given 07/04/2015 Tetanus,Diphtheria,Adut/Ad ol Pertussis Q2037 Given 08/06/2014 Influenza Vaccine (Fluvirin) 3 Years Of Age Or Older Q2037 Given 08/06/2014 Influenza Vaccine (Fluvirin) 3 Years Of Age Or Older 09696 Given 08/12/2013 Influenza Virus Vaccine Done through [facility] [id number] (History Only) Vital Signs Date Vital [...] 1 Lymph % 30.6 % 20.0-42.0 1 [place] % 7.2 % 4.3-13.2 1 Eo% 1.4 % 0.0-6.6 1 Bas% 0.5 % 0.0-1.1 1 Neut# 3.88 K/uL 1.8-7.0 1 Lymph # 1.97 K/uL 1.0-4.0 1 [place] # 0.46 K/uL 0.3-0.9 1 Eos # [...] Alkaline Phosphatase 122 U/L High 45-117 1 General Health Panel 08/07/2017 Thyroid Stim Hormone 3.01 uIU/mL 0.30- 4.20 3 Free T4 0.89 ng/dL 0.76-1.46 3 CMP W/O Egfr 08/07/2017 Glucose 89 mg/dL 74-106 3 BUN 17 mg/dL 7-18 3 Creatinine 0.8 mg/dL 0.6-1.3 3 Glom Filtration Rate, Estimate >60 mL/min >60 3 If >60 mL/min >60 3, 4 BUN/Creat 21.2 ratio 3 Sodium 141 mmol/L 136-145 3 Potassium 4.0 mmol/L 3.5-5.1 3 Chloride 108 mmol/L High 98-107 3 Carbon Dioxide 29 mmol/L 21-32 3 Anion Gap 4 mEq/L Low 8-16 3 Calcium 8.7 mg/dL 8.5-10.1 3 CBC W/ Diff & PLT 08/07/2017 White [...] 3 Lymph % 34.2 % 20.0-42.0 3 [place] % 7.0 % 4.3-13.2 3 Eo% 2.3 % 0.0-6.6 3 Bas% 0.4 % 0.0-1.1 3 Neut# 3.13 K/uL 1.8-7.0 3 Lymph # 1.91 K/uL 1.0-4.0 3 [place] # 0.39 K/uL 0.3-0.9 3 Eos # 0.13 K/uL 0.0-0.5 3 Baso # 0.02 K/uL 0.0-0.1 3 Laboratory test finding 08/07/2017 Cholesterol 139 mg/dL <200 3, 5 Hepatic Function Panel 08/07/2017 Total Protein 7.5 g/dL 6.4-8.2 3 Albumin 3.5 g/dL 3.4-5.0 3 Globulin 4.0 g/dL 1.9-4.3 3 Alb/Glob 0.9 ratio 3 Bilirubin,Total 0.4 mg/dL 0.2-1.0 3 Bilirubin,Direct 0.1 mg/dL 0.0-0.2 3 Bilirubin,Indirect 0.3 mg/dL 0.0-0.9 3 Sgot/Ast 16 U/L 15-37 3 SGPT/Alt 21 U/L 12-78 3 Alkaline Phosphatase 120 U/L High 45-117 3 Hemoglobin A1c 08/07/2017 Glycohemoglobin (A1c) 5.5 % 4.2-6.3 3, 6 eAG 111 mg/dL 3 Basic Metabolic Panel 06/27/2017 Glucose 93 mg/dL [...] 8.5-10.1 7 CBC W/ Diff & PLT 06/27/2017 White [...] 7 Lymph % 37.5 % 20.0-42.0 7 [place] % 6.8 % 4.3-13.2 7 Eo% 1.5 % 0.0-6.6 7 Bas% 0.5 % 0.0-1.1 7 Neut# 3.13 K/uL 1.8-7.0 7 Lymph # 2.19 K/uL 1.0-4.0 7 [place] # 0.40 K/uL 0.3-0.9 7 Eos # 0.09 K/uL 0.0-0.5 7 Baso # 0.03 K/uL 0.0-0.1 7 CBC W/ Diff & PLT 01/09/2017 [...] 9 Lymph % 38.3 % 20.0-42.0 9 [place] % 7.1 % 4.3-13.2 9 Eo% 2.7 % 0.0-6.6 9 Bas% 0.5 % 0.0-1.1 9 Neut# 2.80 K/uL 1.8-7.0 9 Lymph # 2.09 K/uL 1.0-4.0 9 [place] # 0.39 K/uL 0.3-0.9 9 Eos # [...] 11 Lymph % 35.7 % 17.0-46.1 11 [place] % 6.7 % 4.3-13.2 11 Eo% 1.7 % 0.0-6.6 11 Bas% 0.6 % 0.0-1.1 11 Neut# 3.57 K/uL 1.8-7.0 11 Lymph # 2.30 K/uL 1.8-7.0 11 [place] # 0.43 K/uL 0.3-0.9 11 Eos # [...] Thyroid Stim Hormone 2.69 uIU/mL 0.36- 3.74 Laboratory test finding 09/08/2015 Thyroxine (T4) 10.0 g/dL 4.7-13.5 Comprehensive Metabolic 09/08/2015 Glucose 95 mg/dL 74-106 [...] % 40.4-72.8 Lymph % 29.2 % 17.0-46.1 [place] % 7.3 % 4.3-13.2 Eo% 1.6 % 0.0-6.6 Bas% 0.4 % 0.0-1.1 Neut# 3.10 K/uL 1.0-7.0 Lymph # 1.47 K/uL Low 1.8-7.0 [place] # 0.37 K/uL 0.3-0.9 Eos # 0.08 K/uL 0.0-0.5 Baso # 0.02 K/uL 0.0-0.1 LDL Cholesterol Profile 09/08/2015 Cholesterol 151 mg/dL [...] 12-78 Alkaline Phosphatase 143 U/L High 45-117 Basic Metabolic Panel 06/01/2015 Glucose 94 mg/dL [...] % 40.4-72.8 Lymph % 27.3 % 17.0-46.1 [place] % 6.4 % 4.3-13.2 Eo% 1.8 % 0.0-6.6 Bas% 0.3 % 0.0-1.1 Neut# 4.63 K/uL 1.0-7.0 Lymph # 1.97 K/uL 1.8-7.0 [place] # 0.46 K/uL 0.3-0.9 Eos # 0.13 [...] % 40.4-72.8 Lymph % 32.9 % 17.0-46.1 [place] % 6.9 % 4.3-13.2 Eo% 2.1 % 0.0-6.6 Bas% 0.6 % 0.0-1.1 Neut# 4.14 K/uL 1.0-7.0 Lymph # 2.37 K/uL 0.8-3.4 [place] # 0.50 K/uL 0.3-0.9 Eos # 0.15 [...] S RUN DATE: 11/03/ <SEE 30 NOTE> Liver Function Tests 08/06/2014 Total Protein 8.1 g/dL 6.4-8.2 Albumin 3.8 g/dL 3.4-5.0 Globulin 4.3 g/dL 1.9-4.3 Alb/Glob 0.9 ratio Bilirubin,Total 0.4 mg/dL 0.2-1.0 Bilirubin,Direct < 0.1 mg/dL 0.0-0.2 Bilirubin,Indirect 0.3 mg/dL 0.0-0.9 Sgot/Ast 22 U/L 15-37 SGPT/Alt 26 U/L 12-78 Alkaline Phosphatase 121 U/L High 45-117 CBC W/ Diff & PLT 08/06/2014 White [...] % 40.4-72.8 Lymph % 30.0 % 17.0-46.1 [place] % 6.9 % 4.3-13.2 Eo% 2.0 % 0.0-6.6 Bas% 0.6 % 0.0-1.1 Neut# 3.93 K/uL 1.0-7.0 Lymph # 1.95 K/uL 0.8-3.4 [place] # 0.45 K/uL 0.3-0.9 Eos # 0.13 K/uL 0.0-0.5 Baso # 0.04 K/uL 0.0-0.1 Laboratory test 08/06/2014 Vitamin D,25-Hydroxy 31.7 ng/mL 30.0-100.0 31 finding Laboratory test 08/06/2014 Thyroid Stim Hormone 3.81 uIU/mL High 0.36- 3.74 finding Free T4 1.05 ng/dL 0.76-1.46 LDL Cholesterol Profile 08/06/2014 Cholesterol 140 mg/dL 32 Triglycerides 94 mg/dL 33 HDL Cholesterol 55 mg/dL 34 LDL-Cholesterol 66 mg/dL 35 Comprehensive Metabolic Panel 08/06/2014 Glucose 95 mg/dL 74-106 BUN 21 mg/dL High 7-18 Creatinine 0.9 mg/dL 0.6-1.3 Glom Filtration Rate, Estimate >60 mL/min >60 If >60 mL/min >60 36 BUN/Creat 23.3 ratio Sodium 139 mmol/L 136-145 [...] test finding 08/06/2014 CK 79 U/L 26-192 Basic Metabolic Panel 04/21/2014 Glucose 93 mg/dL [...] % 40.4-72.8 Lymph % 21.5 % 17.0-46.1 [place] % 6.9 % 4.3-13.2 Eo% 0.6 % 0.0-6.6 Bas% 0.2 % 0.0-1.1 Neut# 7.76 K/uL High 1.0-7.0 Lymph # 2.36 K/uL 0.8-3.4 [place] # 0.76 K/uL 0.3-0.9 Eos # 0.07 [...] 5.5 % 4.8-6.0 45 eAG 111 mg/dL CBS W/Automated Diff 06/30/2013 White Blood Count [...] % 40.4-72.8 Lymph % 33.1 % 17.0-46.1 [place] % 8.5 % 4.3-13.2 Eo% 3.1 % 0.0-6.6 Bas% 0.6 % 0.0-1.1 Neut# 2.98 K/uL 1.0-7.0 Lymph # 1.80 K/uL 0.8-3.4 [place] # 0.46 K/uL 0.3-0.9 Eos # 0.17 [...] 30-65 Alkaline Phosphatase 148 U/L High 50-136 TSH+Free T4 ([place] & 06/30/2013 Thyroid Stim Hormone 3.30 uIU/mL 0.49-4.67 [facility] Free T4 0.98 ng/dL 0.71-1.85 LDL Cholesterol Profile 06/30/2013 Cholesterol 138 mg/dL 120-200 Triglycerides 77 mg/dL 16-231 HDL Cholesterol 54 mg/dL 29-83 LDL-Cholesterol 69 mg/dL 62-185 Basic Metabolic Panel 03/18/2013 Glucose 92 mg/dL [...] 6.0 % 4.8-6.0 50 eAG 126 mg/dL CBS W/Automated Diff 05/14/2012 White Blood Count [...] % 40.4-72.8 Lymph % 32.0 % 17.0-46.1 [place] % 8.8 % 4.3-13.2 Eo% 1.6 % 0.0-6.6 Bas% 0.5 % 0.0-1.1 Neut# 5.00 K/uL 1.0-7.0 Lymph # 2.80 K/uL 0.8-3.4 [place] # 0.77 K/uL 0.3-0.9 Eos # 0.14 K/uL 0.0-0.5 Baso # 0.04 K/uL 0.0-0.1 Comprehensive Metabolic Panel 05/14/2012 Glucose 92 mg/dL [...] Thyroid Stim Hormone 2.93 uIU/mL 0.49- 4.67 1 I11.9, E78.2, Z00.0 2 Note: Persistent [...] be found at www.kdoqi.org. 3 E66.9,E78.2,R73.01,I11.9,E03.9 4 Note: Persistent reduction for 3 months or more in an eGFR <60 mL/min/1.73 m2 defines CKD. Patients with eGFR values >/=60 mL/min/1.73 m2 may also have CKD if evidence of persistent proteinuria is present. The original MDRD equation for estimated GFR is not valid for patients less than 18 years of age. Additional information may be found at www.kdoqi.org. 5 Reference Guidelines*: Desirable: ........... < 200 mg/dL Borderline High: ..... 200-239 mg/dL High: ................ >=240 mg/dL * The National Cholesterol Education Program (NCEP) 6 Elevated levels of HbA1c suggest the need for more aggressive treatment of glycemia. The [place] Diabetes Association recommends that a primary goal of therapy should be a HbA1c of <7% and that physicians should re-evaluate the treatment regimen in patients with HbA1c values consistently >8%. 7 SCREENING,I11.9,J20.9,F32.9 8 Note: Persistent reduction for [...] found at www.kdoqi.org. 29 RUN DATE: 11/03/14 [facility] LAB LIVE PAGE 1 RUN TIME: [address] [place] [address] Specimen Inquiry Name: FABIEN CLEMENT : [address]: Jesus Watts MD Acct: [id number] Unit: [id number] AGE: 69 Location: [facility] Re11/02/14 SEX: F Status: REG REF SPEC: [id number] LISA: 11/02/14-1021 [facility] [address]: Jesus Watts MD REQ: [id number] RECD: 11/02/14 STATUS: GAYLE SAAVEDRA DR: Stacia Redding MD _ SOURCE: GAS ANTRUM SPDESC: ORDERED: Clotest Procedure Result Verified Site Clotest Final 11/03/14- 0743 ML Clotest Negative END OF REPORT * ML=Testing performed at Main Lab DEPARTMENT OF PATHOLOGY, [address] [place], [place] [address] Tobias Calix M.D. Director [facility] # [id number] 30 RUN DATE: 11/03/14 [facility] LAB LIVE PAGE 1 RUN TIME: 112 [facility] [place], [place] [address] Specimen Inquiry Name: FABIEN CLEMENT : [address]: Jesus Watts MD Acct: [id number] Unit: [id number] AGE: 69 Location: [facility] Re11/02/14 SEX: F Status: REG REF SPEC: [id number] LISA: 11/02/14-1037 [facility] [address]: Jesus Watts MD REQ: [id number] RECD: 11/02/148554 STATUS: JOHN SAAVEDRA DR: Stacia Redding MD [...] Signed (signature on file) Tobias Calix MD 1124 END OF REPORT * ML=Testing performed at Main Lab DEPARTMENT OF PATHOLOGY, [address] [place] [address] Tobias Calix M.D. Director [facility] # [id number] 31 Vitamin D deficiency has been defined by the Greene of Medicine and an Endocrine Society practice guideline as a level of serum 25-OH vitamin D less than 20 ng/mL (1,2). The Endocrine Society went on to further define vitamin D insufficiency as a level between 21 and 29 ng/mL (2). 1. IOM (Greene of Medicine). 2010. Dietary reference intakes for calcium and D. [place]: The National Academies Press. 2. Noa MF, Bladimir CHOWDHURY, Candy PORRAS, et al. Evaluation, treatment, and prevention of vitamin D deficiency: an Endocrine Society clinical practice guideline. JCEM. 2010; 96(7):1911-30. Performed at: - [facility] [id number] Cash Applications Specialist: Catalina Joiner MD, Phone: [phone] 32 Reference Guidelines*: Desirable: ........... < 200 [...] Source: National Cholesterol Education Program (NCEP) 36 Note: Persistent reduction for 3 months or more in an eGFR <60 mL/min/1.73 m2 defines CKD. Patients with eGFR values >/=60 mL/min/1.73 m2 may also have CKD if evidence of persistent proteinuria is present. The original MDRD equation for estimated GFR is not valid for patients less than 18 years of age. Additional information may be found at www.kdoqi.org. 37 Note: Persistent reduction for 3 months [...] Cryptosporidium by DFA Testing Performed by: [place] [address] 42 NEGATIVE FOR C. DIFFICILE TOXIN A/B. [...] D deficiency has been defined by the Greene of Medicine and an Endocrine Society practice guideline as a level of serum 25-OH vitamin D less than 20 ng/mL (1,2). The Endocrine Society went on to further define vitamin D insufficiency as a level between 21 and 29 ng/mL (2). 1. IOM (Greene of Medicine). 2010. Dietary reference intakes for calcium and D. [place]: The National Academies Press. 2. Noa MF, Bladimir CHOWDHURY, Candy PORRAS, et al. Evaluation, treatment, and prevention of vitamin D deficiency: an Endocrine Society clinical practice guideline. JCEM. 2010; 96(7):1911-30. Performed at: RN - [facility] [address] [id number] Cash Applications Specialist: Catalina Joiner MD, Phone: [phone] Note: Persistent reduction for 3 months [...] Date CPT Code Description Status Comment 08/07/2017 10314 Spirometry Graphic Record/Max Completed Voluntary Vent 08/07/2017 79229 EKG-Tracing & Report Completed 07/09/2017 68390 Non-Invcorrotid/Comp /Bilat Study Completed 07/09/2017 71658 Echocardiography Completed 02/24/2016 05471 Dxa Bone Density Axial [employer] Inc Completed Vertebral Fracture Assessment 02/24/2016 Bone Mineral Density Test Completed 09/02/2015 88695 Non-Invcorrotid/Comp /Bilat Study Completed 04/06/2015 Mammogram Completed 06/27/16,06/27/17 08/14/2014 90989 PVR-Atrerial Study Completed 08/06/2014 54010 Spirometry Graphic Record/Max Completed Voluntary Vent 03/26/2014 05840 Bone Density Completed 02/17/2014 01959 Non-Invcorrotid/Comp /Bilat Study Completed 06/30/2013 61038 EKG-Tracing & Report Completed 05/20/2012 62213 Spirometry Graphic Record/Max Completed Voluntary Vent Encounters Type Date Location Provider CPT E/M Dx Office Visit 08/14/2017 10:15a [place] [address] I34.0 I11.9 E66.9 E55.9 F32.9 K21.9 Z00.00 R00.2 Z23 Office Visit 07/05/2017 3:15p [place] [address] I11.9 E66.9 K21.9 F32.9 E55.9 R53.83 Office Visit 04/17/2017 1:40p [place] [address] J20.9 Office Visit 04/04/2017 8:00p [place] [address] I11.9 E66.9 K21.9 F32.9 Office Visit 07/12/2016 7:00p [place] [address] I11.9 E66.9 K21.9 F32.9 R00.2 I65.23 I34.0 Office Visit 03/29/2016 12:00p [place] [address] M85.819 I11.9 E66.9 K21.9 F32.9 M54.2 Office Visit 12/21/2015 3:00p [place] [address] I11.9 E66.9 F32.9 K21.9 M81.0 Office Visit 09/15/2015 3:00p [place] [address] I11.9 E66.9 F32.9 R00.2 Z00.00 K21.9 Z23 Office Visit 07/08/2015 1:15p [place] [address] 924.90 GENERAL Office Visit 06/10/2015 1:00p [place] [address] 268.9 402.10 278.00 311 424.0 272.4 785.10 GENERAL Office Visit 03/05/2015 2:30p [place] [address] 268.9 402.10 278.00 311 784.0 723.10 GENERAL Office Visit 11/26/2014 3:15p [place] [address] 562.11 569.89 268.9 402.10 GENERAL Office Visit 08/18/2014 3:30p [place] [address] 402.10 278.00 311 272.4 268.9 424.0 V16.0 V72.2 V72.0 V70.0 GENERAL Office Visit 04/28/2014 4:00p [place] [address] 402.10 278.00 311 272.4 433.10 268.9 424.0 GENERAL Office Visit 02/05/2014 10:30a [place] [address] 402.10 278.00 311 272.4 268.9 787.91 433.10 GENERAL Office Visit 01/21/2014 10:00a [place] [address] 787.91 GENERAL Office Visit 10/31/2013 1:00p [place] [address] 402.10 278.00 311 272.4 268.9 GENERAL Office Visit 07/15/2013 3:00p [place] [address] 402.10 278.00 724.50 311 V72.2 V70.0 GENERAL Office Visit 04/04/2013 12:30p [place] [address] 724.50 401.1 311 GENERAL Office Visit 11/25/2012 3:30p [place] [address] 465.9 GENERAL Office Visit 11/07/2012 3:30p [place] [address] 724.50 401.1 311 GENERAL Office Visit 10/22/2012 1:15p [place] [address] 465.9 462 GENERAL Office Visit 06/05/2012 3:30p [place] [address] 401.1 311 V72.0 V70.0 724.50 278.00 GENERAL Office Visit 05/14/2012 3:30p [place] [address] 786.2 401.1 530.81 311 GENERAL Plan of Care 08/14/2017 - Stacia Redding MDI34.0 Nonrheumatic mitral (valve) insufficiencyComments:ECH REVIEWEDMILD MR,TRDIASTOLIC DYSFUNCITONPULM FGHGKRFVLKLAQHYE60.9 Hypertensive heart disease without heart failureComments: STABLECONT. ZESTRILRENAL FUNCTION NL MONITOR WITH LABS MUUSYVIK84.9 Obesity, unspecifiedComments:EDUCATION REGARDING OBESITY REVIEWED FOR 15 MINUTES DURING EVALUATIONCO MORBID RISK FATORS INCLUDE HTN ,E55.9 Vitamin D deficiency, amnseirfdaoZ27.9 Major depressive disorder, single episode, unspecifiedComments: CONT ZOLOFTSTABLE NO MED CHANGES NO ADVERSE EFFECTS LEATAO94.9 Gastro- esophageal reflux disease without esophagitisComments:CONT HNRFEAGQEHEFRETOHBKDGOC67.00 Encntr for general adult medical exam w/o abnormal vibofgamJ68.2 QcjjwrqdpwvhS56 Encounter for immunizationAllComments:UA DONEBREAST/PELVIC/RECTAL/STOOL GUIAC DONE/PAP SENTRTO 3 MONTHSCARD1,CBC BEFORE VISIT
[2017-12-13 14:58] VITALS: BP 111/70
--- NOTE | 2017-12-13 15:43 | UC ---
Respiratory Complaint HPI - HPI Summary HPI Summary: 72 year old F with cough. Feeling cold 12/09/16, coughing and sneezing; 100.4 temp, chest and back muscle hurt especially with deep breath; decreased food and fluid intake. Around her grand kids that had chest cold symptoms. Has had cough that is mostly with clear phlegm . Not drinking or eating much . [ End ] - History of Current Complaint Chief Complaint: UCRespiratory Stated Complaint: cough/chest harley Time Seen by Provider: 12/13/17 15:23 Hx Obtained From: Patient ?: No Onset/Duration: Gradual Onset Timing: Constant Severity Initially: Moderate Severity Currently: Moderate Pain Intensity: 6 Character: Cough: Nonproductive - Allergies/Home Medications Allergies/Adverse Reactions: Allergies Allergy/AdvReac Type Severity Reaction Status Date / Time MS Latex [Latex] Allergy Mild Itching Verified 12/13/17 14:44 MS Meloxicam [Meloxicam] Allergy Mild stomach Verified 12/13/17 14:44 pain MS Tramadol [Tramadol] Allergy Mild feels funny Verified 12/13/17 14:44 MS Celecoxib [From Celebrex] Allergy See Comment Verified 12/13/17 14:44 PMH/Surg Hx/FS Hx/Imm Hx Previously Healthy: Yes GI/ History: Gastroesophageal Reflux - Surgical History Surgical History: None - Family History Known Family History: Positive: None - Social History Occupation: Retired Lives: With Family Alcohol Use: None Substance Use Type: None Smoking Status (MU): Never Smoked Tobacco Review of Systems Constitutional: Fever, Chills, Fatigue ENT: Sore Throat, Ear Ache, Nasal Discharge, Sinus Congestion, Sinus Pain/ Tenderness Respiratory: Cough Neurological: Headache Is Patient Immunocompromised?: No All Other Systems Reviewed And Are Negative: Yes Physical Exam Triage Information Reviewed: Yes Appearance: Well-Appearing, No Pain Distress, Well-Nourished Vital Signs: Initial Vital Signs Temp 98.3 F 12/13/17 14:50 Pulse 78 12/13/17 14:50 Resp 18 12/13/17 14:50 BP 111/70 12/13/17 14:50 Pulse Ox 99 12/13/17 14:50 Vital Signs Reviewed: Yes Eye Exam: Normal ENT Exam: Normal Dental Exam: Normal Neck exam: Normal Neck: Positive: 1 Respiratory Exam: Normal Cardiovascular Exam: Normal Musculoskeletal Exam: Normal Neurological Exam: Normal Psychological Exam: Normal Skin Exam: Normal UC Diagnostic Evaluation - Laboratory O2 Sat by Pulse Oximetry: 99 Respiratory Course/Dx - Course Course Of Treatment: IF Sx persist or worsen she will call Sunday AM when I work next and we can prescribe augmentin. - Differential Dx/Diagnosis Differential Diagnosis/HQI/PQRI: Bronchitis, Influenza, Lower Resp Infection, Sinusitis Provider Diagnoses: URI Discharge - Discharge Plan Condition: Good Disposition: HOME Patient Education Materials: Upper Respiratory Infection (ED) Referrals: Stacia Redding MD [Primary Care Provider] - 4 Days
== END 2017-12-13 15:55 | disposition home or self-care (01) ==
LOC: UCCORT 11:19
DX: J06.9 Acute upper respiratory infection, unspecified (principal); K21.9 Gastro-esophageal reflux disease without esophagitis
CPT/HCPCS: 99201; G0463